=== PATIENT | female | born 2000 | race Two or more races ===

== ENCOUNTER 2024-07-07 21:24 | Emergency (ER) | payer SELFPAY ==
[2024-07-07 21:25] VITALS: BMI 24.5
[2024-07-07 21:33] VITALS: BP 136/91; PULSE 82; RESP 18; TEMP 37; O2SAT 99
--- NOTE | 2024-07-07 21:34 | XR_ITS ---
Examination: Right knee 2 views Diagnosis AP lateral right knee 2 views INDICATIONS: Injury to knee today, knee pain FINDINGS: No acute fracture No dislocation Minimal knee effusion IMPRESSION: No acute fracture
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
== END 2024-07-07 23:56 | disposition home or self-care (01) ==
PROVIDERS: Emergency Provider Emergency Medicine; PCP Physician Assistant
DX: S80.01XA Contusion of right knee, initial encounter (principal); S80.11XA Contusion of right lower leg, initial encounter; V43.52XA Car driver injured in collision with other type car in traffic accident, initial encounter
CPT/HCPCS: 73560; 99283